=== PATIENT | male | born 1950 | race Caucasian/White ===

== ENCOUNTER → 2017-09-25 | Outpatient (CLI) | payer OTHER ==
[~2017-09-25] MED LIST: AMLODIPINE BESY10 MG PO; ASPIRIN EC81 M1 PO; ASPIRIN81 M2 PO; ATORVASTATIN CA40 MG; ATORVASTATIN CA40 MG PO; CARVEDILOL12.5 MG PO; CYMBALTA60 MG; CYMBALTA60 MG PO; ELIQUIS5 MG PO; FISH OIL 500 M1 EAC1; GLYBURID-METFO1 EACH PO; JANUMET 50-5001 EACH; JANUMET 50-5001 EACH PO; NORVASC10 MG PO; OMEGA-31000 M1 PO; PACERONE 200 M200 M1 PO; PRINIVIL20 MG PO; PROTONIX40 M4 PO; TRAMADOL 50 MG50 MG PO; [UNRECOGNIZED DRUG - REMARK]
[2017-09-25 14:55] LABS: ALBUMIN 3.7 g/dL (3.4-5.0); DIRECT BILIRUBIN 0.1 mg/dL (<0.1-0.3); TOTAL BILIRUBIN 0.3 mg/dL (<0.1-1.0); TOTAL PROTEIN 7.5 g/dL (6.4-8.2)
== END ==
LOC: M.LAB 13:56
PROVIDERS: Nurse Practitioner
DX: I51.7 Cardiomegaly (principal); I42.9 Cardiomyopathy, unspecified; I48.0 Paroxysmal atrial fibrillation; M46.04 Spinal enthesopathy, thoracic region; Z79.899 Other long term (current) drug therapy

== ENCOUNTER → 2018-03-26 | Outpatient (CLI) | payer OTHER ==
[2018-03-26 13:52] LABS: ALBUMIN 3.6 g/dL (3.4-5.0); DIRECT BILIRUBIN 0.1 mg/dL (<0.1-0.3); TOTAL BILIRUBIN 0.3 mg/dL (<0.1-1.0); TOTAL PROTEIN 7.6 g/dL (6.4-8.2)
== END ==
LOC: M.LAB 13:13
PROVIDERS: Internal Medicine Cardiovascular Disease
DX: I48.2 Chronic atrial fibrillation (principal)

== ENCOUNTER → 2018-09-21 | Outpatient (CLI) | payer OTHER ==
[2018-09-21 15:00] LABS: ALBUMIN 3.5 g/dL (3.4-5.0); DIRECT BILIRUBIN 0.1 mg/dL (<0.1-0.3); TOTAL BILIRUBIN 0.4 mg/dL (<0.1-1.0); TOTAL PROTEIN 7.1 g/dL (6.4-8.2)
== END ==
LOC: M.RAD 14:24
PROVIDERS: Internal Medicine Cardiovascular Disease
DX: J98.4 Other disorders of lung (principal); I48.2 Chronic atrial fibrillation; Z79.899 Other long term (current) drug therapy

== ENCOUNTER → 2019-03-21 | Outpatient (CLI) | payer OTHER ==
[2019-03-21 14:08] LABS: ALBUMIN 3.4 g/dL (3.4-5.0); DIRECT BILIRUBIN 0.1 mg/dL (<0.1-0.3); TOTAL BILIRUBIN 0.3 mg/dL (<0.1-1.0); TOTAL PROTEIN 7.1 g/dL (6.4-8.2)
== END ==
LOC: M.RAD 13:08
PROVIDERS: Internal Medicine Cardiovascular Disease
DX: J98.4 Other disorders of lung (principal); I48.0 Paroxysmal atrial fibrillation; Z79.899 Other long term (current) drug therapy

== ENCOUNTER → 2019-04-02 | Outpatient (CLI) | payer OTHER ==
--- NOTE | 2019-04-02 17:05 | 2DMMODE ---
[place] [address] 2 D/M-MODE ECHOCARDIOGRAM Name: MICHELLE SANCHEZ JR Room: [facility]#: [id number] Admission: 04/02/19 Attend Phys: Natty Eastman, Discharge: Date of : 48 Date of Service: 04/02/19 1705 Report #: [id number] THIS REPORT FOR: //name// APPROVED REPORT Study performed: 04/02/2019 15:04:31 EXAM: Comprehensive 2D, Doppler, and color-flow Echocardiogram Patient Location: Out-Patient BSA: 2.18 HR: 74 bpm BP: 140/80 mmHg Other Information Study Quality: Good Indications Congestive Heart Failure Dyspnea 2D Dimensions IVSd: 11.49 (7-11mm) LVOT Diam: 21.98 (18-24mm) LVDd: 47.73 mm PWd: 11.18 (7-11mm) Ascending Ao: 35.23 (22-36mm) LVDs: 33.47 (25-40mm) Aortic Root: 30.91 mm Volumes Left Atrial Volume (Systole) LA ESV Index: 35.30 mL/m2 Aortic Valve AoV Peak Robby.: 1.09 m/s AO Peak Gr.: 4.73 mmHg LVOT Max P.25 mmHg AO Mean Gr.: 2.66 mmHg LVOT Mean P.26 mmHg LVOT Max V: 1.15 m/s AO V2 VTI: 20.25 cm LVOT Mean V: 0.67 m/s GILMAR (VTI): 3.92 cm2 LVOT V1 VTI: 20.92 cm Mitral Valve E/A Ratio: 0.86 MV Decel. Time: 310.79 ms MV E Max Robby.: 0.46 m/s MV PHT: 90.13 [place] [address] 2 D/M-MODE ECHOCARDIOGRAM Name: MICHELLE SANCHEZ Room: [facility]#: [id number] Admission: 04/02/19 Attend Phys: Natty Eastman, Discharge: Date of : 48 Date of Service: 04/02/19 1705 Report #: [id number] MVA (PHT): 2.44 cm2 TDI E/Lateral E': 5.75 E/Medial E': 6.57 Medial E' Robby.: 0.07 m/s Lateral E' Robby.: 0.08 m/s Pulmonary Valve PV Peak Robby.: 0.96 m/s PV Peak Gr.: 3.66 mmHg Left Ventricle The left ventricle is normal size. There is normal LV segmental wall motion. Mild concentric left ventricular hypertrophy. Left ventricular systolic function is normal. The left ventricular ejection fraction is within the normal range. LVEF is 55-60%. Grade I - abnormal relaxation pattern. Right Ventricle The right ventricle is normal size. The right ventricular systolic function is normal. Atria Left atrium is mildly dilated. The right atrium size is normal. Aortic Valve The aortic valve is normal in structure. No aortic regurgitation is present. There is no aortic valvular stenosis. Mitral Valve The mitral valve is normal in structure. There is no mitral valve regurgitation noted. No evidence of mitral valve stenosis. Tricuspid Valve The tricuspid valve is normal in structure. There is trace tricuspid valve regurgitation noted. Pulmonic Valve Pulmonic valve is not well visualized. There is no pulmonic valvular regurgitation. Great Vessels The aortic root is normal in size. IVC is normal in size and collapses >50% with inspiration[place] [address] 2 D/M-MODE ECHOCARDIOGRAM Name: MICHELLE SANCHEZ JR Room: [facility]#: [id number] Admission: 04/02/19 Attend Phys: Natty Eastman, Discharge: Date of : 48 Date of Service: 04/02/19 1705 Report #: [id number] There is no pericardial effusion. <Conclusion> Mild concentric left ventricular hypertrophy. LVEF is 55-60%. Left atrium is mildly dilated. <ELECTRONICALLY SIGNED> By: Edu Powell MD, FACC 04/02/191704 04 04 Edu Powell MD, [facility] /INF
== END ==
LOC: M.CRD 14:00
DX: I42.9 Cardiomyopathy, unspecified (principal); I48.0 Paroxysmal atrial fibrillation; E11.9 Type 2 diabetes mellitus without complications; I11.0 Hypertensive heart disease with heart failure; I50.9 Heart failure, unspecified; G47.33 Obstructive sleep apnea (adult) (pediatric); Z79.899 Other long term (current) drug therapy; Z87.891 Personal history of nicotine dependence

== ENCOUNTER → 2019-10-16 | Outpatient (CLI) | payer OTHER | LOC: M.RAD 14:09 | PROVIDERS: ATTEND Nurse Practitioner | DX: Z79.899 Other long term (current) drug therapy (principal) ==

== ENCOUNTER → 2020-04-14 | Outpatient (CLI) | payer OTHER | LOC: M.RAD 14:39 | PROVIDERS: ATTEND Internal Medicine Cardiovascular Disease | DX: Z79.899 Other long term (current) drug therapy (principal) ==

== ENCOUNTER → 2020-10-13 | Outpatient (CLI) | payer OTHER ==
[2020-10-13 14:16] LABS: ALBUMIN 3.5 g/dL (3.4-5.0); CALCIUM 8.9 mg/dL (8.5-10.1); CREATININE 1.2 mg/dL (0.6-1.3); POTASSIUM 3.9 mmol/L (3.5-5.1); TOTAL BILIRUBIN 0.3 mg/dL (<0.1-1.0); TOTAL PROTEIN 7.5 g/dL (6.4-8.2)
== END ==
LOC: M.LAB 13:23
PROVIDERS: ATTEND Nurse Practitioner
DX: I48.0 Paroxysmal atrial fibrillation (principal); I42.9 Cardiomyopathy, unspecified; Z79.899 Other long term (current) drug therapy

== ENCOUNTER → 2021-04-15 | Outpatient (CLI) | payer OTHER | LOC: M.RAD 13:19 | PROVIDERS: ATTEND Internal Medicine Cardiovascular Disease | DX: I48.0 Paroxysmal atrial fibrillation (principal) ==

== ENCOUNTER 2021-05-07 17:14 | Emergency (ER) | payer OTHER ==
[~2021-05-07] VITALS: Ht 190.5 cm; Wt 106.1 kg
[2021-05-07] MEDS ORDERED: HYDROCHLOROTHIA25 M1 PO (17:31)
[2021-05-07] MEDS ORDERED: JANUVIA100 MG PO (17:32)
[2021-05-07] MEDS ORDERED: PRAVASTATIN SOD40 MG PO (17:32)
[2021-05-07] MEDS ORDERED: SINGULAIR 10 MG10 M1 PO (17:33)
[2021-05-07] MEDS ORDERED: HYDRALAZINE 2525 M1 (17:33)
[2021-05-07] MEDS ORDERED: METFORMIN HCL500 M3 PO (17:34)
[2021-05-07] MEDS ORDERED: GLIPIZIDE 10 MG10 MG PO (17:34)
[2021-05-07] MEDS ORDERED: CELEXA 20 MG TA20 MG PO (17:35)
[2021-05-07] MEDS ORDERED: NORVASC10 MG PO (17:35)
[2021-05-07 21:12] VITALS: BP 128/79
[2021-05-07 21:20] LABS: ABSOLUTE EOSINOPHILS 0.1 thou/uL (0.0-0.7); ABSOLUTE MONOCYTES 0.5 thou/uL (0.0-1.2); ABSOLUTE NEUTROPHILS 3.4 thou/uL (1.6-8.1); BASOPHILS 0.4 %; CALCIUM 8.2 mg/dL (8.5-10.1); CREATININE 1.6 mg/dL (0.6-1.3); EOSINOPHILS 2.1 %; HEMATOCRIT 31.5 % (42.0-52.0); HEMOGLOBIN 10.2 gm/dL (14.0-18.0); LYMPHOCYTES 19.3 %; MCH 24.8 pg (26.0-34.0); MCHC 32.4 g/dL (28.0-37.0); MCV 76.3 fL (80.0-100.0); MONOCYTES 10.4 %; MPV 8.4 fl. (7.2-11.1); NUCLEATED RBCS 0 /100WBC; PLATELET COUNT* 211 thou/uL (150-400); POLYS 67.8 %; RBC 4.12 mil/uL (4.50-6.00); RDW-CV 17.8 % (10.5-14.5)
[2021-05-07 21:25] LABS: ALBUMIN 2.8 g/dL (3.4-5.0); MAGNESIUM 2.2 mg/dL (1.8-2.4); TOTAL BILIRUBIN 0.3 mg/dL (<0.1-1.0); TOTAL PROTEIN 7.2 g/dL (6.4-8.2)
--- NOTE | 2021-05-08 12:12 | EKG ---
[place] [address] ELECTROCARDIOGRAM REPORT Name: MICHELLE SANCHEZ JR Room: [facility]#: [id number] Admission: 05/07/21 Attend Phys: Discharge: 05/07/21 Date of : 48 Date of Service: 05/07/212042 Report #: [id number] THIS REPORT FOR: //name// 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: : 1950 Requested By: Shawnee Yap Order Number: [id number] MD: Yrn Jordan Measurements Intervals [place] Rate: 69 P: -62 [place]: 269 QRS: -7 QRSD: 124 T: 30 QT: 430 QTc: 461 Interpretive Statements Sinus or ectopic atrial rhythm Prolonged [place] interval Compared to ECG 07/16/2014 02:01:37 Ectopic atrial rhythm now present First degree AV block now present Atrial fibrillation no longer present ST (T wave) deviation no longer present Possible ischemia no longer present Electronically Signed On 05-08-2021 12:12:35 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
== END 2021-05-07 21:12 | disposition left against medical advice (07) ==
LOC: M.ERS 17:14
PROVIDERS: Physician Assistant
DX: R53.1 Weakness (principal); Z20.822 Contact with and (suspected) exposure to COVID-19; Z53.21 Procedure and treatment not carried out due to patient leaving prior to being seen by health care provider